=== PATIENT | female | born 1945 | race Caucasian/White ===

== ENCOUNTER 2016-10-09 19:38 | Emergency (ER) | payer MEDICARE, OTHER ==
[~2016-10-09] VITALS: Ht 165.1 cm; Wt 123.4 kg
[~2016-10-09 19:38] MED LIST: ATENOLOL50 MG PO; BACO; BACO TOP; BENAZEPRIL HYDR20 M1 PO; BLEPH-105 ML; CIPRO250 MG PO; CLOTRIMAZOLE1% TOP; DIFLUCAN150 MG PO; EC NAPROSYN500 MG PO; ECONAZOLE NITRATE1% TOP; GABAPENTIN100 M2 PO; GLIPIZIDE2.5 M1 PO; HIBICLENS118 ML TOP; LAC PO; LOPERAMIDE2 MG PO; METFORMIN HCL500 MG PO; MYCOO TOP; NORCO1 TA2 PO; OMEPRAZOLE DR20 M1 PO; PROCARDIA XL90 MG PO; RANITIDINE HCL150 M1 PO; SULFAMETHOXAZOL1 TA3 PO; TRIAMCINOLONE AC0.13 TOP
[2016-10-09 20:45] LABS: CALCIUM 8.9 mg/dL (8.5-10.1); CARBON DIOXIDE 26.8 mmol/L (21-32); CREATININE SERUM 1.4 mg/dL (0.6-1.0); POTASSIUM SERUM 3.9 mmol/L (3.5-5.1)
[2016-10-09 20:47] LABS: BASOPHIL % 0.6 % (0-2); PLATELET COUNT 308 x10^3mcL (130-400); RED CELL DISTRIBUTION WIDTH 12.9 % (11.5-14.5)
[2016-10-09 20:52] LABS: ALBUMIN 3.3 g/dL (3.4-5.0); BILIRUBIN TOTAL 0.4 mg/dL (0.20-1.00); TOTAL PROTEIN, SERUM 7.4 g/dL (6.4-8.2)
[2016-10-09 22:10] VITALS: BP 171/73
== END 2016-10-09 22:10 | disposition home or self-care (01) ==
LOC: ED 19:38
PROVIDERS: Emergency Medicine
DX: R06.00 Dyspnea, unspecified (principal); R05 Cough; R09.81 Nasal congestion; R60.0 Localized edema; I50.9 Heart failure, unspecified; I11.0 Hypertensive heart disease with heart failure; E11.9 Type 2 diabetes mellitus without complications; Z88.8 Allergy status to other drugs, medicaments and biological substances; Z88.1 Allergy status to other antibiotic agents
CPT/HCPCS: 83880; J1940; Q0092

== ENCOUNTER 2016-11-02 14:00 | Inpatient (IN) | payer MEDICARE, OTHER ==
[~2016-11-02] VITALS: Ht 165.1 cm; Wt 116.6 kg
[2016-11-02 15:22] LABS: BASOPHIL % 0.9 % (0-2); RED CELL DISTRIBUTION WIDTH 12.6 % (11.5-14.5)
[2016-11-02 15:24] LABS: PLATELET COUNT 473 x10^3mcL (130-400)
[2016-11-02 15:30] LABS: CALCIUM 9.1 mg/dL (8.5-10.1); CARBON DIOXIDE 23.6 mmol/L (21-32); CREATININE SERUM 2.4 mg/dL (0.6-1.0); POTASSIUM SERUM 3.3 mmol/L (3.5-5.1)
[2016-11-02 15:37] LABS: BILIRUBIN TOTAL 0.33 mg/dL (0.20-1.00)
[2016-11-02 15:42] LABS: ALBUMIN 3.2 g/dL (3.4-5.0); TOTAL PROTEIN, SERUM 8.3 g/dL (6.4-8.2)
[2016-11-02] MEDS ORDERED: LASIX40 MG PO (16:58)
[2016-11-02] MEDS ORDERED: KLOR-CON M2020 MEQ PO (16:58)
[2016-11-02 17:29] VITALS: BP 174/78
[2016-11-02 17:34] VITALS: Ht 165.1 cm; Wt 116.6 kg
[2016-11-02 19:00] LABS: CHOLESTEROL/HDL RATIO 4.3
[2016-11-02 19:07] LABS: T3 TOTAL 1.07 ng/mL
[2016-11-02 19:08] LABS: FREE T4 1.47 ng/dL (0.76-1.46); FREE THYROXINE INDEX 3.6 ug/dL (1.4-4.5); T4(THYROXINE) 10.3 ug/dL (4.7-13.3)
[2016-11-02 21:19] LABS: microscopic required? YES; urine erythrocyte 1+ (NEGATIVE)
[2016-11-02 21:51] VITALS: BP 139/59
[2016-11-03] VITALS (8 sets, daily range): BP systolic 132–179; BP diastolic 47–70
[2016-11-04 05:30] VITALS: BP 126/51
[2016-11-04 06:09] LABS: BASOPHIL % 0.3 % (0-2); PLATELET COUNT 369 x10^3mcL (130-400); RED CELL DISTRIBUTION WIDTH 13.2 % (11.5-14.5)
[2016-11-04 06:21] LABS: CALCIUM 8.5 mg/dL (8.5-10.1); CARBON DIOXIDE 24.2 mmol/L (21-32); CREATININE SERUM 2.4 mg/dL (0.6-1.0); MAGNESIUM 2.5 mg/dL (1.8-2.4); PHOSPHOROUS 3.4 mg/dL (2.5-4.9); POTASSIUM SERUM 3.7 mmol/L (3.5-5.1)
[2016-11-04 10:37] VITALS: BP 160/46
[2016-11-04] MEDS ORDERED: NEU300 PO ×2 (10:38→13:34)
[2016-11-04] MEDS ORDERED: BACO TOP (10:38)
[2016-11-04] MEDS ORDERED: HIBICLENS118 ML TOP ×2 (10:38→13:31)
[2016-11-04] MEDS ORDERED: THERA TABS1 TAB PO (10:38)
[2016-11-04 10:50] VITALS: BP 160/46
[2016-11-04] MEDS ORDERED: MULTI-VITAMINS1 TAB PO (13:35)
[2016-11-04] MEDS ORDERED: BACTROBAN22 TOP (13:36)
[2016-11-04] MEDS ORDERED: LOTENSIN40 MG PO (17:07)
[2016-11-04] MEDS ORDERED: BENAZEPRIL HYDR20 M1 PO (17:07)
[2016-11-04 17:42] VITALS: BP 180/71
[2016-11-04 18:15] VITALS: BP 150/60
[2016-11-04 21:51] VITALS: BP 158/61
[2016-11-05 00:37] VITALS: BP 155/50
[2016-11-05 05:48] LABS: BASOPHIL % 0.6 % (0-2); PLATELET COUNT 362 x10^3mcL (130-400); RED CELL DISTRIBUTION WIDTH 12.9 % (11.5-14.5)
[2016-11-05 06:00] LABS: CALCIUM 8.5 mg/dL (8.5-10.1); CARBON DIOXIDE 22.1 mmol/L (21-32); CREATININE SERUM 2.2 mg/dL (0.6-1.0); MAGNESIUM 2.4 mg/dL (1.8-2.4); POTASSIUM SERUM 3.8 mmol/L (3.5-5.1)
[2016-11-05 06:04] VITALS: BP 139/55
[2016-11-05 13:26] VITALS: BP 153/65
[2016-11-05] MEDS ORDERED: BENAZEPRIL HYDR20 M1 PO (15:03)
[2016-11-05] MEDS ORDERED: BENAZEPRIL HYDR40 M1 PO (15:03)
[2016-11-05 15:29] VITALS: BP 153/65
== END 2016-11-05 16:10 | disposition home or self-care (01) | DRG 689 ==
LOC: ED 14:00 → DU 16:03
PROVIDERS: Emergency Medicine; ADMIT Family Medicine
DX: N39.0 Urinary tract infection, site not specified (principal); N17.0 Acute kidney failure with tubular necrosis; L03.116 Cellulitis of left lower limb; E87.0 Hyperosmolality and hypernatremia; E44.0 Moderate protein-calorie malnutrition; I42.0 Dilated cardiomyopathy; D68.69 Other thrombophilia; Z68.41 Body mass index [BMI] 40.0-44.9, adult; I16.0 Hypertensive urgency; E87.6 Hypokalemia; E11.65 Type 2 diabetes mellitus with hyperglycemia; E11.59 Type 2 diabetes mellitus with other circulatory complications; E78.5 Hyperlipidemia, unspecified; D64.9 Anemia, unspecified; E66.01 Morbid (severe) obesity due to excess calories; Z22.322 Carrier or suspected carrier of Methicillin resistant Staphylococcus aureus; Z79.84 Long term (current) use of oral hypoglycemic drugs
CPT/HCPCS: 82962; 83880; 84439; J1956; J2270; J2405; J2550; J3490; J7030; Q0092

== ENCOUNTER 2017-02-27 19:26 | Inpatient (IN) | payer MEDICARE, OTHER ==
[~2017-02-27] VITALS: Ht 165.1 cm; Wt 111.4 kg
[~2017-02-27 19:26] MED LIST changes: +BACTROBAN22 TOP; +BENAZEPRIL HYDR40 M1 PO; +KLOR-CON M2020 MEQ PO; +LASIX40 MG PO; +LOTENSIN40 MG PO; +MULTI-VITAMINS1 TAB PO; +NEU300 PO; +THERA TABS1 TAB PO
--- NOTE | 2017-02-27 19:40 | NUR ---
DR BRAVO AT BEDSIDE FOR MSE.
--- NOTE | 2017-02-27 19:45 | NUR ---
PT BROUGHT IN BY [facility] FROM LOCAL [facility] PL[facility] AFTER FEELING "KNEES GIVING OUT". PER MEDIC, PT FELL ON BUTTUCK AND HIT POSTERIOR PART OF HEAD. PER MEDIC, NO LOC NOR DIZZINESS AFTER FALL. UPON ER ARRIVAL PT NOTED TO BE ALERT AND AWAKE, SPEAKING IN COMPLETE CLEAR SENTENCES TO SON AT BEDSIDE. NO SX OF DISTRESS NOTED AT THIS TIME.
--- NOTE | 2017-02-27 19:51 | NUR ---
LAB AT BEDSIDE.
--- NOTE | 2017-02-27 20:12 | NUR ---
XRAY AT BEDSIDE.
[2017-02-27 20:13] LABS: BASOPHIL % 0.5 % (0-2); PLATELET COUNT 332 x10^3mcL (130-400)
[2017-02-27 20:15] LABS: RED CELL DISTRIBUTION WIDTH 14.9 % (11.5-14.5)
[2017-02-27 20:18] LABS: CALCIUM 8.9 mg/dL (8.5-10.1); CARBON DIOXIDE 19.7 mmol/L (21-32); CREATININE SERUM 3.1 mg/dL (0.6-1.0); MAGNESIUM 2.6 mg/dL (1.8-2.4); PHOSPHOROUS 4.6 mg/dL (2.5-4.9)
[2017-02-27 20:26] LABS: POTASSIUM SERUM 7.9 mmol/L (3.5-5.1)
[2017-02-27 20:31] LABS: CK-MB 1.2 ng/mL (0-3.6)
--- NOTE | 2017-02-27 20:33 | NUR ---
PT PICKED UP BY CT VIA GURNEY. NO SX OF DISTRESS NOTED.
[2017-02-27 20:47] LABS: UA SPECIFIC GRAVITY 1.025 (1.005-1.035); microscopic required? YES; urine erythrocyte NEGATIVE (NEGATIVE)
--- NOTE | 2017-02-27 21:16 | NUR ---
PT MEDICATED PER DR BRAVO ORDERS. PT EDUCATED ON MEDS AND VERBALIZED UNDERSTANDING OF TEACHING. PT IV SITE PATENT WITH NO SX OF INFILTRATION NOTED. PT ALERT AND AWAKE TALKING TO RESIDENT MD AT BEDSIDE. NO SX OF DISTRESS NOTED.
[2017-02-27] MEDS ORDERED: NEU300 PO (21:26)
[2017-02-27] MEDS ORDERED: LOTENSIN40 MG PO (21:27)
[2017-02-27] MEDS ORDERED: GLIPIZIDE2.5 M1 PO (21:28)
[2017-02-27] MEDS ORDERED: ADA60 PO (21:28)
[2017-02-27] MEDS ORDERED: METOPROLOL SUC100 M2 PO (21:28)
[2017-02-27] MEDS ORDERED: TRADJENTA5 M1 PO (21:30)
[2017-02-27] MEDS ORDERED: BACLOFEN20 MG PO (21:31)
--- NOTE | 2017-02-27 21:32 | NUR ---
RT AT BEDSIDE FOR BREATHING TX.
--- NOTE | 2017-02-27 21:39 | NUR ---
ADMISSION REPORT GIVEN TO CHRISTIANO MEJIA TO CONTINUE CARE AT EXT [id number]
--- NOTE | 2017-02-27 21:50 | NUR ---
RECEIVED PT FROM ED VIA [facility], CAME IN DUE TO S/P FALL, HAD WEAKNESS ON HER BLE X2 DAYS. AAOX4. NO SOB NOTED. SB W/ ELEVATED T WAVE, HR AT 49. DENIES ABDOMINAL DISCOMFORT. C/O LLE PAIN WHEN TOUCHED. W/ BLE WEAKNESS. IV SITE PATENT AND INTACT. SIDE RAILS UPX2. CALL LIGHT ON REACH. HOB ELEVATED AT 45 DEG. ENDORSED TO PRIMARY NURSE ROBERTO FOR CONTINUITY OF CARE
--- NOTE | 2017-02-27 21:55 | NUR ---
RECEIVED PT FROM [facility] NURSE, VAN. PT IS STABLE AT THIS TIME AND DOES NOT APPEAR TO BE IN ANY ACUTE DISTRESS. ADVISED PT TO USE CALL LIGHT WITHOUT HESITATION FOR ASSITANCE NEEDED TO GO TO THE RESTROOM. S/P FALL. SHE DENIES HEADACHE, DIZZINESS OR ANY PAIN AT THIS TIME. CALL LIGHT WITHIN REACH. WILL CONTINUE TO MONITOR
[2017-02-27] MEDS ORDERED: NIFEDICAL XL60 MG PO (22:01)
[2017-02-27 22:07] VITALS: BP 129/91
[2017-02-27 22:12] VITALS: Ht 165.1 cm; Wt 111.4 kg
[2017-02-27 22:25] LABS: AMYLASE 72 U/L (25-115); LIPASE 395 IU/L (73-393)
[2017-02-27 22:30] LABS: AMPHETAMINE QUAL UR NONE DETECTED (NEG <=1000)
[2017-02-27 22:40] LABS: FREE T4 0.76 ng/dL (0.76-1.46); FREE THYROXINE INDEX 2.2 ug/dL (1.4-4.5); T4(THYROXINE) 6.1 ug/dL (4.7-13.3)
[2017-02-27 22:47] LABS: T3 TOTAL 0.86 ng/mL
--- NOTE | 2017-02-27 23:40 | NUR ---
PT'S BEDSIDE BLOOD SUGAR WAS 83. PT GIVEN ORANGE JUICE WITH 2 SUGAR PACKETS TO PREVENT BLOOD SUGAR DROPPING DUE TO 10 UNITS OF INSULIN GIVEN IN ED. PT IN NO ACUTE DISTRESS AT THIS TIME. CALL LIGHT WITHIN REACH. WILL CONTINUE TO MONITOR
--- NOTE | 2017-02-28 00:53 | NUR ---
PT IS LAYING IN BED WITH EYES CLOSED AT THIS TIME. SHE DOES NOT APPEAR TO BE IN ANY ACUTE DISTRESS AT THIS TIME. CALL LIGHT WITHIN REACH. WILL CONTINUE TO MONITOR
[2017-02-28 01:31] LABS: CALCIUM 9.3 mg/dL (8.5-10.1); CARBON DIOXIDE 18.8 mmol/L (21-32); CREATININE SERUM 2.9 mg/dL (0.6-1.0)
[2017-02-28 01:53] LABS: POTASSIUM SERUM 8.1 mmol/L (3.5-5.1)
--- NOTE | 2017-02-28 01:55 | NUR ---
CRITICAL REPORT FROM LAB FOR K AT 8.1. DR. BRITTON MADE AWARE. ORDERED KAYEX, INSULIN, AND D50.
--- NOTE | 2017-02-28 02:43 | NUR ---
RECHECKED PT'S BEDSIDE BLOOD SUGAR. 211 AT THIS TIME. WILL CONTINUE TO MONITOR
--- NOTE | 2017-02-28 04:10 | NUR ---
PT IS LAYING IN BED WITH EYES CLOSED AT THIS TIME. SHE DOES NOT APPEAR TO BE IN ANY ACUTE DISTRESS AT THIS TIME. BED IN LOWEST POSITION. CALL LIGHT WITHIN REACH. WILL CONTINUE TO MONITOR
[2017-02-28 05:52] VITALS: BP 167/52
--- NOTE | 2017-02-28 06:05 | NUR ---
PT COMPLIED WITH NURSING CARE THROUGHOUT THE SHIFT. PT SLEPT VERY WELL AND IS DIFFICULT TO AROUSE FROM SLEEP. AWAITING AM LABS TO MONITOR K LEVEL. PT WAS CALM AND COOPERATIVE DURING THE SHIFT. IV FLUIDS REMAINS INFUSING PER DOCTOR'S ORDERS. IV SITE IS DRY, PATENT, AND INTACT. PT DOES NOT APPEAR TO BE IN ANY ACUTE DISTRESS AT THIS TIME. BED IN LOWEST POSITION. CALL LIGHT WITHIN REACH. WILL ENDORSE CARE TO DAY NURSE
[2017-02-28 07:06] LABS: BILIRUBIN DIRECT 0.01 mg/dL (0.0-0.2); BILIRUBIN TOTAL 0.18 mg/dL (0.20-1.00); TOTAL PROTEIN, SERUM 7.2 g/dL (6.4-8.2)
[2017-02-28 07:12] LABS: ALBUMIN 3.2 g/dL (3.4-5.0)
[2017-02-28 07:17] LABS: CALCIUM 8.8 mg/dL (8.5-10.1); CARBON DIOXIDE 21.1 mmol/L (21-32); CHOLESTEROL/HDL RATIO 4.7; CREATININE SERUM 2.5 mg/dL (0.6-1.0); MAGNESIUM 2.5 mg/dL (1.8-2.4); PHOSPHOROUS 4.1 mg/dL (2.5-4.9)
[2017-02-28 07:21] LABS: BASOPHIL % 0.5 % (0-2); PLATELET COUNT 280 x10^3mcL (130-400)
[2017-02-28 07:23] LABS: RED CELL DISTRIBUTION WIDTH 15.1 % (11.5-14.5)
[2017-02-28 07:30] LABS: POTASSIUM SERUM 6.7 mmol/L (3.5-5.1)
--- NOTE | 2017-02-28 07:40 | NUR ---
PT RECEIVED DURING CHANGE OF SHIFT, A/OX2-3, PT ABLE TO STATE NAME//AND RESIDES WITH SON, PT SLOW TO ANSWER, TELE 33, SB WITH ELEVATED T-WAVE, PULSES PRESENT, EDEMA NOTED BLE, LUNGS CTA ON RA, BREATHING EVEN AND UNLABORED, DENIES SOB, BOWEL SOUNDS ACTIVE, LOOSE BMS ALL MORNING R/T KAYEXALATE GIVEN, ABLE TO VOID REPORTED, GENERALIZED WEAKNESS, SKIN WARM/DRY/INTACT, DENIES PAIN, IV TO RIGHT HAND INFUSING NS AT 120ML/HR, IV WNL, PREVIOUS RN STATES PT HAS IMPAIRED RECENT MEMORY, WILL CONTINUE TO MONITOR.
--- NOTE | 2017-02-28 08:15 | NUR ---
PRIMARY RN AND CHAR COUCH AT BEDSIDE ASSISTING PT WITH BEDSIDE COMMODE AND REPLACING LINENS, PT PLACE BACK INTO BED, DENIES SOB, STATES SHE HAS RECTAL DISCOMFORT, CALL LIGHT WITHIN REACH, WILL CONTINUE TO MONITOR.
[2017-02-28 09:39] VITALS: BP 123/31
--- NOTE | 2017-02-28 09:44 | NUR ---
DR. GARCIA AND RESIDENTS MAKING ROUNDS, PLAN OF CARE DISCUSSED.
--- NOTE | 2017-02-28 10:17 | NUR ---
PT AROUSED FROM SLEEP, MEDICATIONS HELD PER DR. CAMARILLO'S SUGGESTIONS, NO INDICATION OF PAIN, BREATHING EVEN AND UNLABORED, CALL LIGHT WITHIN REACH, WILL CONTINUE TO MONITOR.
--- NOTE | 2017-02-28 11:15 | NUR ---
PT AROUSED FROM SLEEP, BS 132 NO COVERAGE NEEDED, NO INDICATION OF PAIN, BREATHING EVEN AND UNLABORED, CALL LIGHT WITHIN REACH, BED ALARM ON, WILL CONTINUE TO MONITOR.
--- NOTE | 2017-02-28 12:07 | NUR ---
PT ASLEEP, NO INDICATION OF PAIN, BREATHING EVEN AND UNLABORED, CALL LIGHT WITHIN REACH, WILL CONTINUE TO MONITOR.
[2017-02-28 12:57] VITALS: BP 149/83
[2017-02-28 13:26] LABS: CALCIUM 8.8 mg/dL (8.5-10.1); CARBON DIOXIDE 20.2 mmol/L (21-32); CREATININE SERUM 2.2 mg/dL (0.6-1.0)
[2017-02-28 13:30] LABS: POTASSIUM SERUM 7.3 mmol/L (3.5-5.1)
--- NOTE | 2017-02-28 13:35 | NUR ---
PT'S K+ 7.3, DR. KOO AWARE, PT RESPONSIVE TO VERBAL STIMULI, RESPONDING WITH SINGLE WORD ANSWERS OR NODS, MEDICATIONS GIVEN, CALL LIGHT WITHIN REACH, LUNCH TRAY AT BEDSIDE, BED ALARM ON, WILL CONTINUE TO MONITOR.
--- NOTE | 2017-02-28 14:03 | NUR ---
PT AWAKE, IZA PARDO AT BEDSIDE ASSISTING PT WITH FEEDING, NO INDICATION OF PAIN, BREATHING EVEN AND UNLABORED, CALL LIGHT WITHIN REACH, WILL CONTINUE TO MONITOR.
--- NOTE | 2017-02-28 15:02 | NUR ---
PT ASSISTED TO BSC, WHEN ON BSC PT REPEATEDLY SHIFTED ON SEAT SCREAMING "OW, OW, OW! IT HURTS! I'M SO SORRY.", PT CLEANED AND ASSISTED INTO BED, BSC CLEANED OUT, BED ALARM ON, CALL LIGHT WITHIN REACH, WILL CONTINUE TO MONITOR.
--- NOTE | 2017-02-28 16:00 | NUR ---
DR. KOO SPOKE WITH PT'S FAMILY, EXPLAINED THAT THE POTASSIUM LEVELS WERE HIGH AND THE MEDICATION GIVEN TO HER WILL CAUSE HER TO HAVE LOOSE BM BUT WILL ALSO LOWER POTASSIUM.
--- NOTE | 2017-02-28 16:36 | NUR ---
DR. GRIMM SPOKE WITH PT CONCERNING CARE. DR. CAMARILLO WAS CONTACTED R/T K+ 7.3, ORDERS RECEIVED, WILL FOLLOW ORDERS ENTERED BY DR. GRIMM.
--- NOTE | 2017-02-28 16:37 | NUR ---
CALLED TO DR.SAMUEL CAMARILLO(STATION ENGINEER) AND MADE HIM AWARE OF PTS CURRENT LAB RESULT K-7.3 AND B/C-35/2.2. NEW ORDERS RECEIVED AND HE SAID TO INCREASE IVF RATE TO 150ML/HR, TO GIVE 1AMP D50X1 AND REGULAR INSULIN 10 UNITS X1, ALBUTEROL TX X1 AND REPEAT BMP 4HOURS AFTER. SPOKE TO DR GRIMM(RESIDENT 2) ON THE PHONE AND MADE HIM AWARE OF ABOVE ORDER WELL. ENTERED ALL THE ORDER PER . LENO RN ASSIGNED TO THIS PT MADE AWARE OF ABOVE.
--- NOTE | 2017-02-28 17:17 | NUR ---
PT GIVEN MEDICATION, REPLIES WITH NODDING OR SINGLE WORD ANSWERS, RECEIVED ALBUTEROL TX ORDERED BY DR. GRIMM, CALL LIGHT WITHIN REACH, WILL CONTINUE TO MONITOR.
--- NOTE | 2017-02-28 17:35 | NUR ---
GAR CATHETER INSERTED.
[2017-02-28 17:36] VITALS: BP 133/67
--- NOTE | 2017-02-28 18:07 | NUR ---
PT BEING TAKEN DOWN FOR CT.
--- NOTE | 2017-02-28 19:23 | NUR ---
RECEIVED PT LAYING IN BED. SHE IS LETHARGIC AND AROUSABLE WITH TACTILE STIMULUS. SHE OBEYS COMMANDS, SPEECH IS SLOW AND SLIGHTLY MUMBLED. SHE IS A/O X1, TO PERSON AND KNOWS SHE IS IN THE HOSPITAL. GAR CATH IN PLACE DRAINING TO GRAVITY. SHE DOES NOT APPEAR TO BE IN ANY ACUTE DISTRESS AT THIS TIME. WHEN ASKED HOW SHE FEELS, SHE STATES SHE FEELS FINE. SHE IS ON KAYEX AND LACTULOSE PO FOR HYPERKALEMIA. BEDSIDE COMMODE IS NEAR, BED ALARM ACTIVATED. IV FLUIDS INFUSING PER DOCTOR'S ORDERS. IV SITE IS DRY, PATENT, AND INTACT. BED IN LOWEST POSITION WITH SIDE RAILS UP X2. CALL LIGHT WITHIN REACH. PENDING MOVE TO ROOM CLOSER TO NURSES STATION. WILL CONTINUE TO MONITOR
--- NOTE | 2017-02-28 21:05 | NUR ---
PT MOVED TO ROOM CLOSER TO NURSES STATION FOR CLOSER MONITORING. ORIENTED PT TO NEW ROOM. REORIENTED PT TO CALL LIGHT. BEDSIDE COMMODE IN PLACE/ GAR CATH REMAINS IN PLACE, DRAINING TO GRAVITY. ROOM IS FREE OF SAFETY HAZARDS. BED IN LOWEST POSITION WITH SIDE RAILS UP X2. CALL LIGHT WITHIN REACH. WILL CONTINUE TO MONITOR
--- NOTE | 2017-02-28 21:43 | NUR ---
PT IS CURRENTLY VOMITTING. EMESIS BAG IN PLACE. PT GIVEN ZOFRAN PRN. CALL LIGHT WITHIN REACH. WILL CONTINUE TO MONITOR
[2017-02-28 22:16] LABS: CALCIUM 8.7 mg/dL (8.5-10.1); CARBON DIOXIDE 21.8 mmol/L (21-32); CREATININE SERUM 1.9 mg/dL (0.6-1.0); POTASSIUM SERUM 5.2 mmol/L (3.5-5.1)
[2017-02-28 22:18] VITALS: BP 165/116
--- NOTE | 2017-02-28 22:20 | NUR ---
PATIENT'S B/P SLIGHTLY INCREASED DURING TRANSFER TO ROOM CLOSER TO NURSING STATION. SHE WAS ALSO CLEANED AND BEING MOVED MULTIPLE TIMES DUE TO CONTINUOUS LOOSE STOOLS. WILL CONTINUE TO MONITOR
--- NOTE | 2017-02-28 22:25 | NUR ---
BMP RESULTS RECEIVED, K+ 5.2. DR. BRITTON MADE AWARE, NO NEW ORDERS AT THIS TIME. CONTINUE WITH LACTULOSE PO Q6.
--- NOTE | 2017-03-01 00:25 | NUR ---
PT IS LAYING IN BED WITH EYES CLOSED AT THIS TIME. NO LONG VOMITTING. SHE DOES NOT APPEAR TO BE IN ANY ACUTE DISTRESS AT THIS TIME. CALL LIGHT WITHIN REACH. WILL CONTINUE TO MONITOR
--- NOTE | 2017-03-01 03:25 | NUR ---
PT BEGAN VOMITTING. EMESIS BAG IN PLACE. PT CONTINUES TO BE CONFUSED AT THIS TIME. ZOFRAN PRN GIVEN. CALL LIGHT WITHIN REACH. WILL CONTINUE TO MONITOR
--- NOTE | 2017-03-01 04:30 | NUR ---
PT IS LAYING IN BED AND DOES NOT APPEAR TO BE IN ANY ACUTE DISTRESS AT THIS TIME. IV FLUIDS INFUSING PER DOCTOR'S ORDERS. CALL LIGHT WITHIN REACH. WILL CONTINUE TO MONITOR
--- NOTE | 2017-03-01 05:52 | NUR ---
PT HAD ANOTHER EPISODE OF VOMITTING. ONE TIME DOSE OF ZOFRAN GIVEN. PT ALSO C/O HEADACHE, ONE TIME DOSE OF TORADOL GIVEN IVP. PER DR. BRITTON, OK TO HOLD PO MEDICATIONS SINCE PT IS ACTIVELY VOMITTING. LACTULOSE WAS STILL GIVEN.
--- NOTE | 2017-03-01 06:17 | NUR ---
PT APPEARS LESS LETHARGIC BUT IS STILL DROWSY. PT IS A/O X2, TO PERSON AND PLACE. SHE IS SLOW TO ANSWER QUESTIONS. SPEECH IS CLEAR. PT IS ABLE TO MADE NEEDS KNOWN AND FOLLOW VERBAL COMMANDS. PT COMPLIED WITH NURSING CARE THROUGHOUT THE SHIFT. IV FLUIDS REMAIN INFUSING PER DOCTOR'S ORDERS. IV SITE IS DRY PATENT AND INTACT. ROOM IS FREE OF SAFETY HAZARDS. BED IN LOWEST POSITION WITH SIDE RAILS UP X2. PT IN NO ACUTE DISTRESS. WILL ENDORSE CARE TO DAY NURSE
[2017-03-01 06:33] VITALS: BP 135/59
[2017-03-01 06:55] LABS: CALCIUM 8.6 mg/dL (8.5-10.1); CARBON DIOXIDE 21.3 mmol/L (21-32); CREATININE SERUM 1.6 mg/dL (0.6-1.0); PHOSPHOROUS 3.3 mg/dL (2.5-4.9); POTASSIUM SERUM 5.1 mmol/L (3.5-5.1)
[2017-03-01 07:08] LABS: BASOPHIL % 0.2 % (0-2); PLATELET COUNT 290 x10^3mcL (130-400)
[2017-03-01 07:09] LABS: RED CELL DISTRIBUTION WIDTH 14.8 % (11.5-14.5)
--- NOTE | 2017-03-01 08:00 | NUR ---
RECEIVED PATIENT SLEEPY BUT ARROUSABLE. SHE IS CONFUSED AT TIMES AND NEEDS FREQUENT ORIENTATION. SHE DOES KNOW WHERE SHE IS AND THAT IT IS [facility] BUT SHE IS WITH INTERMITTANT COMPLAINTS OF PAIN AND THEN SHE FALLS ASLEEP AGAIN. SHE REFUSED HER MEAL WHEN OFFERED BUT DID DRINK WATER AND SHE HAD SOME MILD WELL. SHE HAS BEEN ON IV FLUIDS OF DEXTROSE AND NORMAL SALINE. LAST BLOOD SUGAR AT 630 WAS AT 217 AND RECEIVED COVERAGE PER THE TOPOGRAPHICAL FIELD ASSISTANT. SHE HAS DIMINISHED BREATH SOUNDS AND BOWEL SOUNDS ARE HYPOACTIVE. SHE IS GOSSLY OBESE WITH SOME TRACE EDEMA TO [facility] LOWER EXTREMTIES. SHE HAS MINIMAL MOVEMENT BUT WHEN CHECKED REFLEX TO THE BOTTLE OF HER FEET SHE GIGGLED AND PULLED AWAY NORMALLY. SHEIS PHIL TO MOVE HER HANDS BUT NEEDS TO BE PROPTED TO DO SO. SHE HAS STRONG SLATE CUTTER OPERATOR TO THE BOTH HANDS. SHE IS NOTED TO HAVE POTASSIUM LEVEL OF 5.0 THIS AMD BUN AT20.6 AND CREATININE AT 1.6. PATIENT HAS BEEN ON LEVAQUIN AND NO ADVERSE REACTION NOTED. PATIENT HAS NOTED NEGATIVE CHEST X RAY AND IS WITH PVD TO THE BILATYERAL LOWER EXTREMTIES. HX IS TIEH THTN AND BP THIS AM AT 170/100 AND HAD BEEN WITH 99.7 TEMPERATURE AND 72, 18, 98%. PATIENT HAD RECEIVE KAYEXALATE AND LACTULOSE DUE TO ELEVATION FO THE POTASSIUM LEVEL. APTIENT AHS NO HYDORNEPHORSIS AND HAD A DISTEDNED BLADDER AND WAS DRAINED OF URINE PER THE NIGHT SIFT REPORT OF 1500 CC. CONTINUED WITH GAR AND OUTPUT IS ADEQUATE. CT OF THE HEAD SHOW. MILD CHERONIC ISCHEMIC CHANGES BUT NO BLEED. PATIENT HAS ALLERGY TO KEFLEX AND MACROBID NOTED. WILL CONTINUE TO MONITOR IDNICATED.
--- NOTE | 2017-03-01 09:15 | NUR ---
SEEN BY THE HEADER UP AND RESIDENT AND PLAN OF CARE DISCUSSED WITH THE PATIENT. SHE WAS NOT RESPONDING TO THEM BUT NOTED SHE IS SLEEPY AND SHE IS ABLE TO BE ARROUSED AND MOTIVATED BUT SHE IS SOMEWHAT IN A DEPRESSED STATE AND POOR MOTIVATION IS NOTED.
[2017-03-01 09:45] VITALS: BP 170/83
--- NOTE | 2017-03-01 11:54 | NUR ---
GAVE ZOPFRAN AND TYLENOL FOR HEADACHE AND NAUSEA AND WILL CONTINUED TO MONITRO.
[2017-03-01 12:57] VITALS: BP 169/84
--- NOTE | 2017-03-01 14:01 | NUR ---
FAMILY AT BEDSIDE AND SUPPORTIVE WITH CARE.
--- NOTE | 2017-03-01 14:51 | NUR ---
FAMILY STATES PATIENT NEEDS MORE PAIN MEDICATION AND GAVE NORCO ORDERED. WILL MONITOR FOR EFFECTIVENESS.
--- NOTE | 2017-03-01 16:20 | NUR ---
BLOOD SUGAR AT THIS TIME AT 200A ND WILL BE RECEIVING COVERAGE OF 3 UNITS OF REGULAR. RESTING QUIETLY AT THIS TIME. NORCO APPEARS TO BE EFFECTIVE.
[2017-03-01 17:15] VITALS: BP 147/71
--- NOTE | 2017-03-01 17:32 | NUR ---
GAR REMOVED BY PROPOSAL DEVELOPMENT MANAGER AND HER PROFESSOR AND PATIENT WAS AWARE OF INDICATIONS PRIOR. PATIENT IS TO BE SCANNED OF THE BLADDER AFTER FOUR HOURS TO SEE IF SHE HAS ANY EXCESSIVE RESIDUAL. PER DR NUNN FOR SHE HAD RETENTION ON ADMISSION AND THE URINE OUTPUT PER REPORT WAS 1500CC POST THE PLACEMENT OF THE GAR LAST NIGHT. WILL ENDORSE TO THE NEXT SHIFT FOR SCANNING AROUND 2130 TONIGHT.
--- NOTE | 2017-03-01 19:40 | NUR ---
PT SLEEPING. AROUSES. ORIENTED X3. TELE # 33, SR, HR; 82. PT ASSESSED; SEE NSG FLOWSHEET. SAFETY REINFORCED; SEE EDUCAT SHEET. WILL CONTINUE TO MONITOR.
[2017-03-01 21:14] VITALS: BP 152/73
--- NOTE | 2017-03-01 21:32 | NUR ---
BLADDER SCANNED PT. NO URINE NOTED WITH THE BLADDER SCAN, DR SCOTT MADE AWARE OF THE ABOVE. ALSO INFORMED DR SCOTT PT BLOOD SUGAR; 170 AND THE COVERAGE WAS HELD DUE TO PT DID NOT EAT DINNER. NO NEW ORDERS GIVEN. WILL CONTINUE TO MONITOR PT.
[2017-03-02] VITALS (10 sets, daily range): BP systolic 110–211; BP diastolic 52–114
--- NOTE | 2017-03-02 00:05 | NUR ---
THE 2100 BLOOD SUGAR WAS 170,PT DID NOT EAT DINNER, COVERAGE HELD PER DR SCOTT. RECHECK ON THE BLOOD SUGAR; 186, INFORMED DR SCOTT OF PT BLOOD SUGAR, DR SCOTT STATED TO COVER THE BLOOD SUGAR. ALSO INFORMED DR SCOTT PT HAS NOT VOIDED DURING THIS SHIFT, NO NEW ORDERS GIVEN. WILL CONTINUE TO MONITOR.
--- NOTE | 2017-03-02 01:30 | NUR ---
PT COUGHING. INFORMED DR SCOTT WHO STATED WILL PUT IN AN ORDER FOR COUGH MED
--- NOTE | 2017-03-02 01:50 | NUR ---
PT HAS NOT VOIDED THIS SHIFT OF NOW, INFORMED DR SCOTT AND BLADDER SCAN PERFORMED; [address] SCOTT AWARE.
--- NOTE | 2017-03-02 02:05 | NUR ---
PT C/O OF SOB AND CP. PT APPEARS TO BE IN DISTRESS. DR SCOTT MADE AWARE AND IN PT ROOM. O2 SAT ON RA; 77%. APPLIED 2 LITERS O2 VIA NC; 86-89%, BP; 211/114, MAP;146, HR 143, TEMP; 98.2, RESP; 29. RT NOTIFIED TO COME AND GIVE BREATHING TX.
--- NOTE | 2017-03-02 02:10 | NUR ---
RT IN ROOM GIVING BREATHING TREATMENT. DR SCOTT STILL IN PT ROOM. PT STILL C/O SOB. O2 SAT NOW 89%.
--- NOTE | 2017-03-02 02:25 | NUR ---
O2 SAT NOW 97%.
--- NOTE | 2017-03-02 02:31 | NUR ---
LASIX ADMINISTERED TO PT (SEE EMAR).
--- NOTE | 2017-03-02 02:32 | NUR ---
EKG BEING PERFORMED,
--- NOTE | 2017-03-02 02:35 | NUR ---
ABG BEING PERFORMED.
--- NOTE | 2017-03-02 02:40 | NUR ---
BP; 192/107, MAP; 135, HR; 144. PT PLACED ON 4 LITERS VIA NC BY RT.
--- NOTE | 2017-03-02 02:45 | NUR ---
BP; 173/95, HR; 123, O2 SAT ON 4 LITERS VIA NC. 95%, HR; 136, RESP; 22. WILL CONTINUE TO MONITOR.
--- NOTE | 2017-03-02 03:00 | NUR ---
PT APPEARS TO BE RESTING COMFORTABLY.
--- NOTE | 2017-03-02 03:25 | NUR ---
TELE MONITOR SHOWS HR; 150. DR SCOTT AND MYSELF IN ROOM. VS; BP; 164/86, MAP; 112, O2 SAT; 94%, RESP; 22, HR; 145. NO DISTRESS NOTED. WILL CONTINUE TO MONITOR.
--- NOTE | 2017-03-02 05:33 | NUR ---
IV TO LF HAND IS LEAKING, REMOVED IV; CANULA INTACT. STARTED A NEW 24 GUAGE IV TO THE RT WRIST. WILL CONTINUE TO MONITOR.
[2017-03-02 06:53] LABS: PLATELET COUNT 316 x10^3mcL (130-400)
[2017-03-02 07:03] LABS: RED CELL DISTRIBUTION WIDTH 14.8 % (11.5-14.5)
[2017-03-02 07:10] LABS: CALCIUM 8.6 mg/dL (8.5-10.1); CARBON DIOXIDE 19.2 mmol/L (21-32); POTASSIUM SERUM 4.4 mmol/L (3.5-5.1)
--- NOTE | 2017-03-02 07:16 | NUR ---
ALL PT CARE ENDORSED TO RYANNE ALVARADO
--- NOTE | 2017-03-02 07:44 | NUR ---
RECEIVED PT SITTING AT THE EDGE OF BED AND TRYING TO GET OUT OF BED AND TANGLED WITH IV TUBINGS AND NASAL CANNULA. PT HR IS 144. CLEARED ALL TANGLES AND PT WANTED TO GO RESTROOM. ASSISTED PT TO GO TO BSC AND ASSISTED BACK TO BED AND GAVE COMFORTABLE POSITION. AFTER THAT HR 92. INFORMED ABOUT HR FLUTUATED 130'S TO 150'S AND PT'S WBC=23.3 AND LAB REQUESTING FOR SEPSIS PROTOCOLE. CHARGE NURSE AWARE.
--- NOTE | 2017-03-02 07:50 | NUR ---
RECEIVED PT IN BED. ASSESSED AND WILL DOCUMENT. DENIES PAIN THIS TIME. SAFTEY PRECAUTIONS ON. WILL MONITOR.
[2017-03-02 08:13] LABS: BAND NEUTROPHIL 0 % (0-10); BASOPHIL 1 % (0-2); MONOCYTE 1 % (0-7); SEGMENTED NEUTROPHILS 94 % (37-75)
[2017-03-02 08:14] LABS: PLATELET MORPHOLOGY PLATELETS NORMAL; rbc morphology (normal/abnorm) NORMAL (NORMAL)
--- NOTE | 2017-03-02 08:45 | NUR ---
AND RESIDENTS DID ROUNDS EXPLAINED THE PLAN OF CARE. PT IS STABLE.
--- NOTE | 2017-03-02 12:00 | NUR ---
PAGED TO INFORM URINE CULTURE RESULT JOSEF AND AILYNO.
--- NOTE | 2017-03-02 12:10 | NUR ---
Manny CAME AND WORKED WITH PT. PT AMBULATED WITH WALKER AND HELP OF Manny.
--- NOTE | 2017-03-02 13:00 | NUR ---
PT ATE 30% OF HER LUNCH AND SHE SAID SHE THINK HER APPETITE IS COMING BACK.
--- NOTE | 2017-03-02 14:00 | NUR ---
PT IS LYING IN THE BED. STABLE. DENIES PAIN. NO SOB NOTED.
--- NOTE | 2017-03-02 15:00 | NUR ---
AWARE ABOUT URINE CULTURE RESULT AND PT IS ON ZOSYN IV. NO NEW ORDER RECEIVED. PT IS ON CONTACT ISO.
--- NOTE | 2017-03-02 18:47 | NUR ---
PT HAD 60% OF HER DINNER AND SHE IS HAPPY NOW AND STABLE.
--- NOTE | 2017-03-02 19:05 | NUR ---
PT RESTING IN BED COMFORTABLY. DENIES PAIN. STABLE. GAVE REPORT TO NEXT SHIFT NURSE.
--- NOTE | 2017-03-02 19:40 | NUR ---
PT ALERT/ORIENTED X3. NO C/O PAIN. PT APPEARS TO LOOK BETTER TODAY THAN YESTERDAY. PT SON IN ROOM AND WOULD LIKE TO SPEAK WITH MD, PT SON WANTS TO KNOW WHY PT IS "LOOPY" AND HAS HAND "TREMORS". SLIGHT TREMORS NOTED. WILL NOTIFY DR SCOTT. PT IN CONTACT ISOLATION FOR MDRO AND ECHOLI OF THE URINE. INSTRUCTED PT TO CALL WHEN NEEDS ASSISTANCE AND NOT TO TRY TO GET OOB WITHOUT ASSISTANCE,PT ACKNOWLEDGED. ENCOURAGED USE OF THE INCENTIVE SPIROMETER, PT DEMONSTRATED ITS USE. WILL CONTINUE TO MONITOR.
--- NOTE | 2017-03-02 19:55 | NUR ---
DR SCOTT IN PT ROOM SPEAKING TO PT AND PT SON.
--- NOTE | 2017-03-02 22:26 | NUR ---
RT ATTEMPTED TO PLACE PT ON BIPAP; PT REFUSED. WILL CONTINUE TO MONITOR.
--- NOTE | 2017-03-03 01:15 | NUR ---
PT SLEEPING, AROUSES. WILL CONTINUE TO MONITOR.
--- NOTE | 2017-03-03 03:40 | NUR ---
PT SLEEPING. NO DISTRESS NOTED. WILL CONTINUE TO MONITOR.
--- NOTE | 2017-03-03 05:02 | NUR ---
PT SLEPT IN LONG INTERVALS THROUGHOUT THE NIGHT. NO DISTRESS NOTED. NO C/O PAIN.NO C/O SOB. WILL CONTINUE TO MONITOR.
[2017-03-03 06:03] VITALS: BP 135/48
[2017-03-03 07:03] LABS: BASOPHIL % 0.3 % (0-2); PLATELET COUNT 268 x10^3mcL (130-400)
[2017-03-03 07:13] LABS: RED CELL DISTRIBUTION WIDTH 14.8 % (11.5-14.5)
[2017-03-03 07:28] LABS: CALCIUM 8.4 mg/dL (8.5-10.1); CARBON DIOXIDE 23.9 mmol/L (21-32); CREATININE SERUM 1.8 mg/dL (0.6-1.0); POTASSIUM SERUM 4.4 mmol/L (3.5-5.1)
--- NOTE | 2017-03-03 09:10 | NUR ---
PT ALERT, AWAKE, ORIENTED. DENIES CHEST PAIN, PRESSURE, SOB. LUNG SOUNDS CLEAR BILATERALLY, ABDOMEN SOFT ROUND NONTENDER. PULSES STRONG THROUGHOUT PERIPHERALS. SKIN CDI THROUGHOUT. IV REMAINS CDI WIHTOUT SIGNS OF INFILTRATION CURRENTLY EATING BREAKFAST. BED IN LOWEST POSITION, CALL LIGHT WITHIN REACH, 2 RAILS UP.
--- NOTE | 2017-03-03 09:14 | NUR ---
TOOK AM MEDS WITHOUT DIFFICULTY, ASPIRATION PRECAUTIONS.
[2017-03-03 09:51] VITALS: BP 121/52
--- NOTE | 2017-03-03 12:06 | NUR ---
INSULIN GIVEN ORDERED. DENIES PAIN. NO SOB NOTED. TALKING ON PHONE. BED IN LOWEST POSITION, CALL LIGHT WITHIN REACH, 2 RAILS UP.
--- NOTE | 2017-03-03 12:45 | NUR ---
ASSISTED WITH LUNCH SET UP, NO DISTRESS NOTED.
--- NOTE | 2017-03-03 13:42 | NUR ---
PT AWAKE, ALERT, ORIENTED X 4. ATE 75% OF MEAL. IN NO APPARENT DISTRESS, DENIES PAIN. BED IN LOWEST POSITION, CALL LIGHT WITHIN REACH, 2 RAILS UP.
--- NOTE | 2017-03-03 14:07 | NUR ---
UP WITH PT.
[2017-03-03 14:50] VITALS: BP 116/56
--- NOTE | 2017-03-03 14:55 | NUR ---
PT COMPLAINS OF CHEST PAIN AND PRESSURE 5/[address] PARRISH
--- NOTE | 2017-03-03 15:02 | NUR ---
PAGED AND SPOKE WITH DR PARRISH. MADE AWARE PATIENT REPORTING NON-RADIATING CHEST PAIN DESCRIBED "PRESSURE", VSS O2 SATS 96 ON ROOM AIR. PLACED ON O2 2L VIA NC. MADE AWARE NTG ORDER READS PRN FOR BLOOD PRESSURE. OKAY TO GIVE NTG FOR CHEST PAIN AT THIS TIME.
--- NOTE | 2017-03-03 15:43 | NUR ---
PT STATES NO LONGER HAVING CHEST PAIN, PRESSURE. WILL CONTINUE TO MONITOR. BED IN LOWEST POSITION, CALL LIGHT WITHIN REACH, 2 RAILS UP.
[2017-03-03 17:12] VITALS: BP 119/54
[2017-03-03] MEDS ORDERED: LAC PO (17:25)
[2017-03-03] MEDS ORDERED: AMERINET CHOICE1 PD2 IV (17:27)
--- NOTE | 2017-03-03 17:45 | NUR ---
AND SON BEDSIDE. ALL AWARE OF TRANSFER TO [facility] TOMORROW.
--- NOTE | 2017-03-03 17:52 | NUR ---
PT CURRENTLY EATING DINNER. FAMILY AT BEDSIDE. DENIES CHEST PAIN, PRESSURE, SOB AT THIS TIME. BED IN LOWEST POSITION, CALL LIGHT WITHIN REACH, 2 RAILS UP.
--- NOTE | 2017-03-03 18:08 | NUR ---
SPOKE WITH DR KOO AND MADE HER AWARE BLOOD SUGARS IN 200'S AND ON D5NS.
--- NOTE | 2017-03-03 18:45 | NUR ---
PT COMPLAINING THAT RIGHT IV PAINFUL, BURNING, FLUSHED BUT WITHOUT EASE. IV INSERTED TO RIGHT ARM 22GAUGE IV, FLUSHED WITH EASE, FLUIDS RESTARTED. RIGHT LOWER ARM IV DC'D, CATHETER INTACT. BED IN LOWEST POSITION, CALL LIGHT WITHIN REACH, 2 RAILS UP.
[2017-03-03 19:00] VITALS: BP 109/50
[2017-03-03 21:00] VITALS: BP 154/55
--- NOTE | 2017-03-03 21:40 | NUR ---
TOOK OVER PT CARE.DUE MEDS ADMINISTERED.DAVID CONTINUE TO MONITOR.
--- NOTE | 2017-03-03 22:46 | NUR ---
C/O SWEATING .BS CHECKED @ 146 MG/DL.PT ON K-PAD TO BACK.LOOSEN SOME BLANKET.WILL CONTINUE TO MONITOR.
--- NOTE | 2017-03-03 23:00 | NUR ---
PT C/O FEELING NAUSEOUS.NO VOMITING NOTED.ICE CHIPS GIVEN AT THIS TIME.WILL CONTINUE TO MONITOR.
--- NOTE | 2017-03-03 23:45 | NUR ---
CHECKED ON PT AND VERBALIZED RELIEF OF NAUSEA FROM ICE CHIPS.ENCOURAGED TO CALL FOR ASSISTANCE AT ALL TIMES.WILL CONTINUE TO MONITOR.
--- NOTE | 2017-03-04 01:37 | NUR ---
PT CONTINUE TO C/O NAUSEA BUT NO VOMITING NOTED.ZOFRAN 4 MG IVP ADMINISTERED.WILL CONTINUE TO MONITOR.
--- NOTE | 2017-03-04 03:00 | NUR ---
PT CALLED AND WENT TO PT'S ROOM AND APPEARS UPSET THAT NO ONE HAS COME TO HER ROOM FOR AN HOUR NOW AND HASN'T ADDRESS ALL HER NEEDS,REQUESTING FOR A NEW NURSE AT THIS TIME.CHARGE NURSE MADE AWARE.
--- NOTE | 2017-03-04 03:05 | NUR ---
TALKED TO PATIENT AT THIS TIME AND REQUESTING TO CHANGE HER NURSE,SHE CLAIMED THAT HER NURSE IS NOT ADDRESSING ALL HER CONCERN AFTER 2130 PM LAST NIGHT,TOLD PATIENT THAT HER NURSE BEEN CHECKING ON HER AND GAVE HER MEDICATIONS,PT STATED HE CALLED AT 0200 AM AND NO ONE CHECK ON HER FOR AN HOUR,TOLD PATIENT THAT I WILL INVESTIGATE AND FIND OUT IF STAFF RECEIVED HER CALL,SHE STARTED SCREAMING AND TELLING ME THAT SHE'S NOT A LIAR,THAT SHE CALLED AND NO BODY CHECK ON HER,LET PATIENT CALM DOWN AND ASK HER TO ALLOW ME GET OUT FROM THE ROOM SO I CAN ASSIGN ANOTHER NURSE TO TAKE CARE OF HER AND THAT I CAN CALL MD TO SEE AND CHECK ON HER,PT JUST KEEP REPEATING ALL HER CONCERNS ALL OVER AGAIN,LET TO TALK TO PATIENT AND ASSIGNED ANOTHER NURSE TO TAKE CARE OF HER REQUESTED.
--- NOTE | 2017-03-04 03:39 | NUR ---
CALLED DR. SCOTT AND MADE AWARE OF PT'S CONCERN,WENT IN THE ROOM AND SPEAKING TO PT AT THIS TIME.ENDORSED CARE TO ANOTHER NURSE REQUESTED.
--- NOTE | 2017-03-04 04:11 | NUR ---
PATIENT ADVISED TO USE I.S. AT BEDSIDE BY DOCTOR SCOTT TO IMPROVE HER BREATHING. REFUSED BIPAP OFFERRED STS I'M NOT SNORING AND I DON'T GET ANY SLEEP TONIGHT" ICE CHIPS PROVIDED PER REQUESTED. WILL CONTINUE TO MONITOR.
--- NOTE | 2017-03-04 05:00 | NUR ---
INCONTINENCE URINE, PERICARE PROVIDED, Z GUARD APPLIED TO SACRAL AREA, CHUX CHANGED, KEPT HOB ELEVATED AT 30DEG, ENCOURAGED TO USE I.S. TOLERATED X10 EVERY HOUR WHEN AWAKE, PRILOSEC PO GIVEN FOR EPIGASTRIC PAIN AREA. WILL CONTINUE TO MONITOR.
[2017-03-04 05:41] VITALS: BP 111/35
[2017-03-04 06:27] VITALS: BP 167/60
--- NOTE | 2017-03-04 07:38 | NUR ---
ALERT AND ORIENTED. MANY COMPLAINTS ABOUT CARE AND PHYSICAL PROBLEMS. REPORTING INTERMITENT SHOOTING PAIN IN LEFT FOOT THAT HAS NEVER BEEN THIS BAD. ALSO REPORTING GURGLING SOUND IN CHEST THAT KEPT HER UP ALL NIGHT. WILL TALK WITH DR ABOUT THESE SYMPTOMS. NS @ 30 TO RFA WNL. O2 AT 2L VIA NC, NO SOB NOTED. TELE 33. FALL PRECAUTIONS. AWARE OF TRANSFER TO [place] TO BE TODAY. CALL LIGHT WITHIN REACH.
--- NOTE | 2017-03-04 07:45 | NUR ---
REPORTED INCONTINENT OF URINE OR STOOL, CHECKED, DRY AND CLEAN.
--- NOTE | 2017-03-04 08:00 | NUR ---
REPORTED INCONTINENT OF URINE AND STOOL. WAS INCONTINENT OF BOTH. CLEANED AND REPOSITIONED FOR BREAKFAST.
--- NOTE | 2017-03-04 08:07 | NUR ---
SPOKE WITH DR PARRSIH CONCERNING REPORTS OF SHOOTING PAIN IN LEFT FOOT AND GURGLING.
--- NOTE | 2017-03-04 08:38 | NUR ---
RT IN TO GIVE RX.
[2017-03-04 09:33] VITALS: BP 104/42
--- NOTE | 2017-03-04 10:02 | NUR ---
ANOTHER EPISODE OF INCONTINENCE OF URINE AND STOOL. CLEANED AND REPOSITIONED.
--- NOTE | 2017-03-04 10:50 | NUR ---
ANOTHER EPISODE OF INCONTINENT STOOL AND URINE. (SOFT STOOL).
--- NOTE | 2017-03-04 11:12 | NUR ---
PT AMBULATED TURPIN WITH PT. VOMITTED. PT REMOVES CPM AT THIS TIME TO LET HER "REST." STATED WILL COME BACK AT OR AFTER LUNCH TO PLACE HER BACK ON CPM MACHINE.
[2017-03-04 11:56] VITALS: BP 124/51
--- NOTE | 2017-03-04 14:17 | NUR ---
Report called to jluis Vasquez.
--- NOTE | 2017-03-04 14:22 | NUR ---
PATIENT GIVEN ADDRESS AND PHONE NUMBER OF [facility], SHE CALLED AND MADE FAMILY AWARE OF DIFFERENT FACILITY.
--- NOTE | 2017-03-04 14:22 | NUR ---
PT NOTES TIME 1340 CHART REVIEWED AND CLEARED FOR PT BY NURSING, ANN/REED. ATTEMPTED TO SEE PATIENT TWICE AT 1205 AND AT 1340. PT REFUSED ALL SKILLED INTERVENTIONS AT BOTH TIMES. PT STATES AT 1205 "I WANT TO PERFORM THERAPY AFTER LUNCH, I AM VERY TIRED AND 4/10 PAIN IN STOMACH." NURSING AWARE OF PAIN LEVELS. AT 1340 PT C/O NAUSEOUSNESS AND REFUSING TO PERFORM THERAPY. PT WILL DC TO SNF SOME TIME THIS AFTERNOON PER NURSING. EDUCATED PT THE IMPORTANCE/BENEFITS OF PERFORMING PHYSICAL THERAPY AND OOB ACTIVITIES. NURSING AWARE THAT PT REFUSED THERAPY TODAY. ALSO, EDUCATED PT ON DAILY THER EX/HEP. PVE(2)
[2017-03-04 14:37] VITALS: BP 124/51
--- NOTE | 2017-03-04 14:57 | NUR ---
ANOTHER EPISODE OF INCONTINENT URINE. CLEANED AND REPOSITIONED.
--- NOTE | 2017-03-04 16:05 | NUR ---
DISCHARGE INFORMATION PROVIDED TO PATIENT. WILL BE TRANSFERED TO [facility], PATIENT AND FAMILY MADE AWARE. EDUCATED ON DISEASE PROCESS, DISCHARGE MEDICATIONS. IV TO REMAIN IN PLACE FOR IV ABX X 7 DAYS AT [facility], PATIENT AWARE. NO PAIN AT THIS TIME. THE [facility] TO PICKUP AT 5PM. BED IN LOWEST POSITION, CALL LIGHT WITHIN REACH, 2 RAILS UP.
--- NOTE | 2017-03-04 17:20 | NUR ---
CALLED [facility], THEY WILL BE ANOTHER 30-45 MINUTES.
--- NOTE | 2017-03-04 17:24 | NUR ---
PT CHANGED INTO TRANSFER GOWNS. IV FLUSHED AND PATENT WITH NO SIGNS OF INFILTRATION. PT ATE 100% OF EARLY DINNER. COILER CLEANED PATIENT. PT READY FOR TRANSFER.
--- NOTE | 2017-03-04 18:20 | NUR ---
CALLED [facility] FOR ETA, DISPATCHER REPORTS THEY ARE IN BUILDING.
--- NOTE | 2017-03-04 18:55 | NUR ---
PT TRANSFERED VIA [facility] BY [facility] STAFF.
--- NOTE | 2017-03-04 19:03 | NUR ---
OFF FLOOR VIA [facility], ALL BELONGINGS WITH PATIENT.
== END 2017-03-04 19:04 | DRG 689 ==
LOC: ED 19:26 → DU 20:37
PROVIDERS: Emergency Medicine; Family Medicine Sports Medicine; ADMIT Student in an Organized Health Care Education/Training Program
DX: N39.0 Urinary tract infection, site not specified (principal); N17.0 Acute kidney failure with tubular necrosis; G93.41 Metabolic encephalopathy; J96.00 Acute respiratory failure, unspecified whether with hypoxia or hypercapnia; Z68.41 Body mass index [BMI] 40.0-44.9, adult; D68.69 Other thrombophilia; I42.0 Dilated cardiomyopathy; E87.2 Acidosis; S09.90XA Unspecified injury of head, initial encounter; E11.51 Type 2 diabetes mellitus with diabetic peripheral angiopathy without gangrene; E11.42 Type 2 diabetes mellitus with diabetic polyneuropathy; B96.29 Other Escherichia coli [E. coli] as the cause of diseases classified elsewhere; F43.23 Adjustment disorder with mixed anxiety and depressed mood; E86.0 Dehydration; E87.5 Hyperkalemia; M54.9 Dorsalgia, unspecified; G89.29 Other chronic pain; K21.9 Gastro-esophageal reflux disease without esophagitis; D64.9 Anemia, unspecified; E87.8 Other disorders of electrolyte and fluid balance, not elsewhere classified; E66.01 Morbid (severe) obesity due to excess calories; Y93.89 Activity, other specified; W18.39XA Other fall on same level, initial encounter; Y92.480 Sidewalk as the place of occurrence of the external cause
CPT/HCPCS: 36600; 82962; 83880; 84439; 94150; 97110-GP; 97116-GP; 97530-GP; J1815; J1885; J1940; J1956; J2060; J2405; J2543; J3490; J7030; J7040; J7042; J7613; J7620; J8597; Q0092

== ENCOUNTER 2017-03-30 17:38 | Inpatient (IN) | payer MEDICARE, OTHER ==
[~2017-03-30] VITALS: Ht 165.1 cm; Wt 119.0 kg
[~2017-03-30 17:38] MED LIST changes: +ADA60 PO; +AMERINET CHOICE1 PD2 IV; +BACLOFEN20 MG PO; +METOPROLOL SUC100 M2 PO; +NIFEDICAL XL60 MG PO; +TRADJENTA5 M1 PO
[2017-03-30 18:05] LABS: BASOPHIL % 0.3 % (0-2); PLATELET COUNT 312 x10^3mcL (130-400)
[2017-03-30 18:13] LABS: RED CELL DISTRIBUTION WIDTH 15.1 % (11.5-14.5)
[2017-03-30 18:16] LABS: CARBON DIOXIDE 22.8 mmol/L (21-32); CREATININE SERUM 1.6 mg/dL (0.6-1.0); POTASSIUM SERUM 5.3 mmol/L (3.5-5.1)
[2017-03-30 18:20] LABS: ALBUMIN 3.6 g/dL (3.4-5.0); BILIRUBIN TOTAL 0.3 mg/dL (0.20-1.00); TOTAL PROTEIN, SERUM 8.2 g/dL (6.4-8.2)
[2017-03-30] MEDS ORDERED: GLIPIZIDE2.5 M1 PO (19:11)
[2017-03-30] MEDS ORDERED: TRADJENTA5 M1 PO (19:11)
[2017-03-30] MEDS ORDERED: NORCO1 TA2 PO (19:15)
[2017-03-30 19:40] VITALS: BP 151/46
[2017-03-30 19:46] LABS: MAGNESIUM 2.1 mg/dL (1.8-2.4); PHOSPHOROUS 3.2 mg/dL (2.5-4.9)
[2017-03-30 19:47] LABS: CHOLESTEROL/HDL RATIO 4.6
[2017-03-30 19:58] LABS: FREE T4 0.91 ng/dL (0.76-1.46); FREE THYROXINE INDEX 2.6 ug/dL (1.4-4.5); T4(THYROXINE) 7.8 ug/dL (4.7-13.3)
[2017-03-30 20:09] VITALS: BP 151/46
[2017-03-30 20:44] VITALS: BP 151/46
[2017-03-30 22:21] LABS: UA SPECIFIC GRAVITY <=1.005 (1.005-1.035); microscopic required? YES; urine erythrocyte NEGATIVE (NEGATIVE)
[2017-03-30 22:37] LABS: AMPHETAMINE QUAL UR NONE DETECTED (NEG <=1000)
[2017-03-31] VITALS (7 sets, daily range): BP systolic 101–126; BP diastolic 35–87
[2017-03-31 03:21] LABS: CALCIUM 9.4 mg/dL (8.5-10.1); CARBON DIOXIDE 24.1 mmol/L (21-32); CREATININE SERUM 1.7 mg/dL (0.6-1.0); MAGNESIUM 2.2 mg/dL (1.8-2.4); PHOSPHOROUS 4.1 mg/dL (2.5-4.9)
[2017-03-31 03:43] LABS: POTASSIUM SERUM 5.6 mmol/L (3.5-5.1)
[2017-03-31 03:45] LABS: BASOPHIL % 0.4 % (0-2); PLATELET COUNT 292 x10^3mcL (130-400)
[2017-03-31 04:06] LABS: RED CELL DISTRIBUTION WIDTH 14.6 % (11.5-14.5)
[2017-03-31 10:59] LABS: CALCIUM 9.4 mg/dL (8.5-10.1); CARBON DIOXIDE 25.3 mmol/L (21-32); CREATININE SERUM 2.2 mg/dL (0.6-1.0)
[2017-04-01 05:22] VITALS: BP 122/46
[2017-04-01 06:15] LABS: BASOPHIL % 0.5 % (0-2); PLATELET COUNT 266 x10^3mcL (130-400)
[2017-04-01 06:31] LABS: CALCIUM 8.8 mg/dL (8.5-10.1); CARBON DIOXIDE 26.9 mmol/L (21-32); CREATININE SERUM 2.2 mg/dL (0.6-1.0); POTASSIUM SERUM 5.1 mmol/L (3.5-5.1)
[2017-04-01 06:42] LABS: RED CELL DISTRIBUTION WIDTH 15.1 % (11.5-14.5)
[2017-04-01 10:00] VITALS: BP 103/46
[2017-04-01 15:04] VITALS: BP 105/48
[2017-04-01 18:47] VITALS: BP 153/56
[2017-04-01 21:45] VITALS: BP 152/54
[2017-04-02 06:24] VITALS: BP 135/83
[2017-04-02 09:59] VITALS: BP 147/73
[2017-04-02] MEDS ORDERED: COR3 PO (12:12)
[2017-04-02] MEDS ORDERED: DOXYCYCLINE HY100 MG PO (12:21)
[2017-04-02] MEDS ORDERED: NIT0.4 SL (12:36)
[2017-04-02 13:07] VITALS: BP 147/73
== END 2017-04-02 13:37 | disposition home or self-care (01) | DRG 640 ==
LOC: ED 17:38 → DU 18:41
PROVIDERS: Emergency Medicine; ADMIT Family Medicine
DX: E87.5 Hyperkalemia (principal); N17.0 Acute kidney failure with tubular necrosis; Z68.41 Body mass index [BMI] 40.0-44.9, adult; I42.0 Dilated cardiomyopathy; N39.0 Urinary tract infection, site not specified; B96.20 Unspecified Escherichia coli [E. coli] as the cause of diseases classified elsewhere; L30.4 Erythema intertrigo; I10 Essential (primary) hypertension; E11.51 Type 2 diabetes mellitus with diabetic peripheral angiopathy without gangrene; E11.65 Type 2 diabetes mellitus with hyperglycemia; E78.5 Hyperlipidemia, unspecified; K21.9 Gastro-esophageal reflux disease without esophagitis; I34.0 Nonrheumatic mitral (valve) insufficiency; I36.1 Nonrheumatic tricuspid (valve) insufficiency; M54.9 Dorsalgia, unspecified; G89.29 Other chronic pain; F41.9 Anxiety disorder, unspecified; F32.9 Major depressive disorder, single episode, unspecified; E66.01 Morbid (severe) obesity due to excess calories; Z79.84 Long term (current) use of oral hypoglycemic drugs; Z16.24 Resistance to multiple antibiotics
CPT/HCPCS: 82962; 83880; 84439; J0610; J1885; J1940; J2405; J2543; J3010; J7030; J7620; Q0092

== ENCOUNTER 2017-05-07 01:58 | Inpatient (IN) | payer MEDICARE, OTHER ==
[~2017-05-07] VITALS: Ht 165.1 cm; Wt 116.1 kg
[~2017-05-07 01:58] MED LIST changes: +COR3 PO; +DOXYCYCLINE HY100 MG PO; +NIT0.4 SL
[2017-05-07 04:20] LABS: CALCIUM 8.8 mg/dL (8.5-10.1); CARBON DIOXIDE 26.3 mmol/L (21-32); CREATININE SERUM 1.3 mg/dL (0.6-1.0); POTASSIUM SERUM 3.9 mmol/L (3.5-5.1)
[2017-05-07 05:05] LABS: BASOPHIL % 0.4 % (0-2); PLATELET COUNT 296 x10^3mcL (130-400); RED CELL DISTRIBUTION WIDTH 13.8 % (11.5-14.5)
[2017-05-07 08:24] LABS: MAGNESIUM 2.4 mg/dL (1.8-2.4); PHOSPHOROUS 3.1 mg/dL (2.5-4.9)
[2017-05-07 10:55] VITALS: BP 139/61
[2017-05-07 12:41] VITALS: BP 146/51
[2017-05-07 12:43] VITALS: Ht 165.1 cm; Wt 116.1 kg
[2017-05-07 17:13] VITALS: BP 145/43
[2017-05-07 21:37] VITALS: BP 121/56
[2017-05-08 05:12] VITALS: BP 152/51
[2017-05-08 07:16] LABS: BASOPHIL % 0.5 % (0-2); PLATELET COUNT 277 x10^3mcL (130-400)
[2017-05-08 07:31] LABS: CALCIUM 8.9 mg/dL (8.5-10.1); CARBON DIOXIDE 25.7 mmol/L (21-32); CREATININE SERUM 1.3 mg/dL (0.6-1.0); POTASSIUM SERUM 4.1 mmol/L (3.5-5.1)
[2017-05-08 08:54] VITALS: BP 148/56
[2017-05-08 13:25] VITALS: BP 135/56
[2017-05-08 17:18] VITALS: BP 141/63
[2017-05-08 21:52] VITALS: BP 105/40
[2017-05-09 06:06] VITALS: BP 161/48
[2017-05-09 07:16] LABS: BASOPHIL % 0.5 % (0-2); PLATELET COUNT 259 x10^3mcL (130-400); RED CELL DISTRIBUTION WIDTH 13.8 % (11.5-14.5)
[2017-05-09 07:40] LABS: CREATININE SERUM 1.5 mg/dL (0.6-1.0); POTASSIUM SERUM 4.4 mmol/L (3.5-5.1)
[2017-05-09 09:14] VITALS: BP 131/39
[2017-05-09 12:38] VITALS: BP 147/48
[2017-05-09] MEDS ORDERED: TOR10 PO (15:12)
[2017-05-09] MEDS ORDERED: ELA25 PO (15:14)
[2017-05-09 15:22] VITALS: BP 147/48
== END 2017-05-09 16:53 | disposition home or self-care (01) | DRG 205 ==
LOC: ED 01:58 → DU 05:58
PROVIDERS: Emergency Medicine; Family Medicine; Internal Medicine Gastroenterology; Student in an Organized Health Care Education/Training Program
PROC: 0DB68ZX Excision of Stomach, Via Natural or Artificial Opening Endoscopic, Diagnostic (ICD-10-PCS; principal; 2017-05-07 14:00)
DX: M94.0 Chondrocostal junction syndrome [Tietze] (principal); N17.0 Acute kidney failure with tubular necrosis; E43 Unspecified severe protein-calorie malnutrition; Z68.41 Body mass index [BMI] 40.0-44.9, adult; E11.51 Type 2 diabetes mellitus with diabetic peripheral angiopathy without gangrene; E11.65 Type 2 diabetes mellitus with hyperglycemia; E11.42 Type 2 diabetes mellitus with diabetic polyneuropathy; K22.4 Dyskinesia of esophagus; K44.9 Diaphragmatic hernia without obstruction or gangrene; K21.9 Gastro-esophageal reflux disease without esophagitis; I16.0 Hypertensive urgency; M54.9 Dorsalgia, unspecified; G89.29 Other chronic pain; E78.5 Hyperlipidemia, unspecified; E66.01 Morbid (severe) obesity due to excess calories
CPT/HCPCS: 43235; 82962; 83880; J1100; J1200; J1610; J1885; J2250; J2310; J3010; J3490; J7030; Q0092

== ENCOUNTER 2017-12-27 05:54 | Emergency (ER) | payer MEDICARE, OTHER ==
[~2017-12-27] VITALS: Ht 160 cm; Wt 115.2 kg
[~2017-12-27 05:54] MED LIST changes: +ELA25 PO; +TOR10 PO
[2017-12-27 05:59] VITALS: Ht 160 cm; Wt 115.2 kg
[2017-12-27 06:58] VITALS: BP 133/54
== END 2017-12-27 06:58 | disposition home or self-care (01) ==
LOC: ED 05:54
DX: H66.91 Otitis media, unspecified, right ear (principal); H60.91 Unspecified otitis externa, right ear; I10 Essential (primary) hypertension; E11.9 Type 2 diabetes mellitus without complications; E78.00 Pure hypercholesterolemia, unspecified; Z88.1 Allergy status to other antibiotic agents; Z88.8 Allergy status to other drugs, medicaments and biological substances

== ENCOUNTER 2018-02-03 16:22 | Emergency (ER) | payer MEDICARE, OTHER ==
[~2018-02-03] VITALS: Ht 160 cm; Wt 113.4 kg
[2018-02-03 16:27] VITALS: Ht 160 cm; Wt 113.4 kg
[2018-02-03 17:56] VITALS: BP 139/70
== END 2018-02-03 17:56 | disposition home or self-care (01) ==
LOC: ED 16:22
DX: S80.02XA Contusion of left knee, initial encounter (principal); I10 Essential (primary) hypertension; E11.9 Type 2 diabetes mellitus without complications; Z90.49 Acquired absence of other specified parts of digestive tract; Z98.890 Other specified postprocedural states; Z88.1 Allergy status to other antibiotic agents; W18.39XA Other fall on same level, initial encounter; Y93.89 Activity, other specified; Y92.89 Other specified places as the place of occurrence of the external cause; Y99.8 Other external cause status
CPT/HCPCS: J2270